=== PATIENT | female | born 1970 ===

== ENCOUNTER → 2025-03-23 23:59 | Outpatient (BNV) | payer OTHER, SELFPAY | PROVIDERS: PCP Internal Medicine; Visit Provider Psychiatry & Neurology Neurology | DX: G57.83 Other specified mononeuropathies of bilateral lower limbs (principal); G57.62 Lesion of plantar nerve, left lower limb; M54.16 Radiculopathy, lumbar region | CPT/HCPCS: 95886; 95911 ==